=== PATIENT | male | born 1995 | race Caucasian/White ===

== ENCOUNTER 2017-02-20 06:15 | Emergency (ER) | payer SELFPAY ==
[~2017-02-20] VITALS: Ht 170.2 cm; Wt 55.0 kg
[~2017-02-20 06:15] MED LIST: FLUO20 PO
[2017-02-20 06:16] VITALS: BP 150/77; PULSE 77; RESP 16; TEMP 99.2; O2SAT 99
== END 2017-02-20 06:32 | disposition left against medical advice (07) ==
LOC: NED 06:15
DX: R51 Headache (principal); Z53.21 Procedure and treatment not carried out due to patient leaving prior to being seen by health care provider
CPT/HCPCS: 99281